=== PATIENT | male | born 1990 | race Caucasian/White ===

== ENCOUNTER 2020-05-10 21:37 | Inpatient (IN) | payer OTHER ==
[~2020-05-10] VITALS: Ht 172.7 cm; Wt 64.1 kg
[2020-05-10] MEDS ORDERED: HYDROcodone/acetaminophen 5mg/325mg tablet PO PRN (23:15)
[2020-05-10] MEDS ORDERED: NO HOME MEDS (23:25)
[2020-05-11] MEDS ORDERED: morphine 2 MG/ML inj. syringe IV PRN ×2 (00:25)
[2020-05-11] MEDS ORDERED: ondansetron/PF 4mg/2ml inj IV PRN (00:25)
[2020-05-11] MEDS ORDERED: magnesium Cl slow-release 64mg tablet PO PRN (00:25)
[2020-05-11] MEDS ORDERED: magnesium 2GM in 50ml NS 50 ML IV PRN (00:25)
[2020-05-11] MEDS ORDERED: magnesium 4gm in 100ml NS 100 ML IV PRN (00:25)
[2020-05-11] MEDS ORDERED: acetaminophen 325mg tablet PO PRN ×2 (00:25)
[2020-05-11] MEDS ORDERED: potassium Cl 20 mEq SR tablet PO PRN ×2 (00:25)
[2020-05-11] MEDS ORDERED: HYDROcodone/acetaminophen 5mg/325mg tablet PO PRN (00:25)
[2020-05-11] MEDS ORDERED: potassium CL 10mEq/100ml bag 100 ML IV PRN ×2 (00:25)
--- NOTE | 2020-05-11 02:30 | NUR ---
Patient in room PCU 3018. I have received report from ED RN and had the opportunity to ask questions and assume patient care.
--- NOTE | 2020-05-11 02:40 | NUR ---
Pt. arrived fr/ED via gurney in no acute distress. Assisted to bed, amb w/standby monitoring. Oriented to bed, room, surroundings and POC. Educated to plan, offering reassurance as pt appears anxious.
[2020-05-11 03:00] VITALS: BP 136/86
--- NOTE | 2020-05-11 03:54 | NUR ---
Talked to Dr. Lomax per patient anxiety about PE. Pt request for d-dimer. Dr. Lomax aware and noted in chart neg CT scan for PE w/ contrast from previous hospital. Dr. Lomax told me "tell him not to worry about it. The CT scan was already done." Will place CBC, CMP order for this morning labs. Will continue to monitor.
[2020-05-11] MEDS: HYDROcodone/acetaminophen 10/325mg tab PO PRN ×4 (05:30→21:56)
[2020-05-11 05:40] LABS: BASOPHILS # (AUTO) 0.1 X10'3 (0-0.2); EOSINOPHILS # (AUTO) 0.5 X10'3 (0-0.9); HEMATOCRIT 41.1 % (42.0-52.0); HEMOGLOBIN 13.8 g/dl (14.0-17.9); LYMPHOCYTES # (AUTO) 1.2 X10'3 (1.1-4.8); LYMPHOCYTES % (AUTO) 19.9 % (21-51); MEAN CORPUSCULAR HEMOGLOBIN 30.1 PG (27.0-31.0); MEAN CORPUSCULAR HGB CONC 33.7 g/dL (33.0-36.5); MEAN CORPUSCULAR VOLUME 89.3 FL (78-98); MEAN PLATELET VOLUME 7.1 FL (7.4-10.4); MONOCYTES # (AUTO) 0.6 X10'3 (0-0.9); MONOCYTES % (AUTO) 9.8 % (2-12); NEUTROPHILS # (AUTO) 3.8 X10'3 (1.8-7.7); NEUTROPHILS % (AUTO) 61.3 % (42-75); PLATELET COUNT 296 X10'3 (140-440); RED CELL DISTRIBUTION WIDTH 13.5 % (11.5-14.5); WHITE BLOOD COUNT 6.1 X10'3 (4.5-11.0)
[2020-05-11 05:56] LABS: ALANINE AMINOTRANSFERASE 24 U/L (12-78); ALBUMIN 3.8 G/DL (3.4-5.0); ALBUMIN/GLOBULIN RATIO 1.3 (1.1-1.5); ALKALINE PHOSPHATASE 46 IU/L (46-116); ANION GAP 6 (8-16); ASPARTATE AMINO TRANSFERASE 19 U/L (10-37); BILIRUBIN,TOTAL 0.5 MG/DL (0.1-1.0); BLOOD UREA NITROGEN 10 MG/DL (7-18); BUN/CREATININE RATIO 12.8 (5.4-32.0); CALCIUM 9.7 MG/DL (8.5-10.1); CHLORIDE 104 MMOL/L (99-107); CREATININE 0.78 MG/DL (0.60-1.10); GLUCOSE 90 MG/DL (70-104); POTASSIUM 4.2 MMOL/L (3.5-5.1); SODIUM 140 MMOL/L (135-145); TOTAL CARBON DIOXIDE 30.1 MMOL/L (24-32); TOTAL PROTEIN 6.8 G/DL (6.4-8.2); eGFR > 90 ML/MIN
[2020-05-11 06:00] VITALS: BP 129/89
--- NOTE | 2020-05-11 06:36 | NUR ---
Patient in room U 3018. I have received report from Estefania SAWYER and had the opportunity to ask questions and assume patient care. Addendum: 05/11/20 at 0639 by Olivia Hernandez RN Correction: Have not received report yet at this time. The night nurse was not Estefania SAWYER
--- NOTE | 2020-05-11 06:54 | NUR ---
Patient in room PCU 3018. I have received report from Yajaira SAWYER and had the opportunity to ask questions and assume patient care.
[2020-05-11] MEDS: K and/or MAG REPLACEMENT MC SCH ×2 (08:00→20:00)
[2020-05-11] MEDS ORDERED: nicotine 14mg patch - 24hr TD SCH (08:00)
[2020-05-11] MEDS: heparin, porcine 5000 units/ml vial SQ SCH ×3 (08:24→23:13)
--- NOTE | 2020-05-11 08:24 | NUR ---
Problems reprioritized. Patient report given, questions answered & plan of care reviewed with Lilibeth SAWYER.
[2020-05-11] MEDS: CefTRIAXone 2gm/D5W 50ml 50 ML IV SCH (08:25)
--- NOTE | 2020-05-11 08:32 | NUR ---
Patient refused Nicotine patch, denies being a smoker
--- NOTE | 2020-05-11 10:15 | NUR ---
Dr. Virk seen patient. Per Dr. Virk, patient's chest tube need to be back on suction because patient complaining of shortness of breath especially during deep breathing.
[2020-05-11] MEDS ORDERED: cefazolin/dext.iso 2gm/50ml 50 ML IV ONE (10:25)
[2020-05-11] MEDS ORDERED: gabapentin 400mg capsule PO ONE (10:25)
[2020-05-11] MEDS ORDERED: MALTODEXTRIN/FRUCTOSE 0.68 KCAL/ML LIQUID 296ML BOTTLE PO ONE (10:25)
[2020-05-11 11:00] VITALS: BP 146/86
[2020-05-11 11:25] LABS: PARTIAL THROMBOPLASTIN TIME 28 SECONDS (22-32)
[2020-05-11] MEDS: HYDROmorphone inj. 0.5 MG/0.5 ML DISP.SYRIN IV PRN ×2 (11:27→16:00)
[2020-05-11 14:17] LABS: CLARITY,URINE CLEAR (Clear); COLOR,URINE STRAW (Yellow); GLUCOSE, URINE NEGATIVE (Neg); KETONES,URINE NEGATIVE (Neg); LEUKOCYTE ESTERASE ,URINE NEGATIVE (Neg); NITRITES, URINE NEGATIVE (Neg); OCCULT BLOOD,URINE NEGATIVE (Neg); PROTEIN,URINE NEGATIVE (Neg)
[2020-05-11 14:25] LABS: UA COLLECTION TYPE CLN CATCH MIDSTREAM
[2020-05-11 15:00] VITALS: BP 126/78
--- NOTE | 2020-05-11 15:10 | NUR ---
Spoke to Dietitian Tony requesting for Ensure Presurgery liquid needed for surgery tomorrow. He said he will let the kitchen crew know
[2020-05-11] MEDS: LORazepam 0.5 MG tablet PO PRN (15:23)
--- NOTE | 2020-05-11 18:25 | NUR ---
Patient in room PCU 3018. I have received report from SILVERIO Steel and had the opportunity to ask questions and assume patient care.
--- NOTE | 2020-05-11 18:56 | NUR ---
Problems reprioritized. Patient report given, questions answered & plan of care reviewed with Ruth Navarro RN.
--- NOTE | 2020-05-11 19:17 | NUR ---
c/o 04/07 pain. No pain meds due at this time, will consult .
--- NOTE | 2020-05-11 19:31 | NUR ---
Received order for 0.5 mg dilaudid for mod pain, 1.0 mg for severe, D5 1/2 NS @ 75 when pt goes NPO at MO for surgery.
[2020-05-11] MEDS: HYDROmorphone 1 mg/ml syringe IV PRN ×2 (19:47→23:59)
[2020-05-11] MEDS: lactobacillus rhamnosus 10,000 MMU CELLS/CAPSULE PO SCH (19:47)
[2020-05-11] MEDS: mupirocin 2% ointment 22GM NS SCH (19:48)
[2020-05-11 22:00] VITALS: BP 129/79
[2020-05-11] MEDS: dextrose 5%-1/2 normal saline 1,000 ML IV SCH (23:57)
[2020-05-12] VITALS (25 sets, daily range): BP systolic 115–213; BP diastolic 62–104
[2020-05-12] MEDS: HYDROcodone/acetaminophen 10/325mg tab PO PRN ×3 (03:10→22:37)
[2020-05-12] MEDS: HYDROmorphone 1 mg/ml syringe IV PRN ×2 (04:14→20:48)
[2020-05-12] MEDS ORDERED: gabapentin 400mg capsule PO ONE (05:30)
[2020-05-12] MEDS ORDERED: MALTODEXTRIN/FRUCTOSE 0.68 KCAL/ML LIQUID 296ML BOTTLE PO ONE (05:30)
[2020-05-12] MEDS ORDERED: cefazolin/dext.iso 2gm/50ml 50 ML IV ONE (05:30)
[2020-05-12 06:00] LABS: BASOPHILS # (AUTO) 0.1 X10'3 (0-0.2); BASOPHILS % (AUTO) 0.9 % (0-1); EOSINOPHILS # (AUTO) 0.5 X10'3 (0-0.9); EOSINOPHILS % (AUTO) 7.5 % (0-6); HEMATOCRIT 40.5 % (42.0-52.0); HEMOGLOBIN 13.9 g/dl (14.0-17.9); LYMPHOCYTES # (AUTO) 1.4 X10'3 (1.1-4.8); LYMPHOCYTES % (AUTO) 19.7 % (21-51); MEAN CORPUSCULAR HEMOGLOBIN 30.8 PG (27.0-31.0); MEAN CORPUSCULAR HGB CONC 34.2 g/dL (33.0-36.5); MEAN CORPUSCULAR VOLUME 90.1 FL (78-98); MEAN PLATELET VOLUME 7.3 FL (7.4-10.4); MONOCYTES # (AUTO) 0.8 X10'3 (0-0.9); MONOCYTES % (AUTO) 11.2 % (2-12); NEUTROPHILS # (AUTO) 4.3 X10'3 (1.8-7.7); NEUTROPHILS % (AUTO) 60.7 % (42-75); PLATELET COUNT 295 X10'3 (140-440); WHITE BLOOD COUNT 7.1 X10'3 (4.5-11.0)
[2020-05-12 06:01] LABS: PARTIAL THROMBOPLASTIN TIME 30 SECONDS (22-32)
[2020-05-12 06:06] LABS: ALANINE AMINOTRANSFERASE 24 U/L (12-78); ALBUMIN 3.8 G/DL (3.4-5.0); ALBUMIN/GLOBULIN RATIO 1.3 (1.1-1.5); ALKALINE PHOSPHATASE 47 IU/L (46-116); ANION GAP 9 (8-16); ASPARTATE AMINO TRANSFERASE 16 U/L (10-37); BILIRUBIN,TOTAL 0.6 MG/DL (0.1-1.0); BLOOD UREA NITROGEN 14 MG/DL (7-18); BUN/CREATININE RATIO 17.3 (5.4-32.0); CALCIUM 9.3 MG/DL (8.5-10.1); CHLORIDE 103 MMOL/L (99-107); CREATININE 0.81 MG/DL (0.60-1.10); GLUCOSE 108 MG/DL (70-104); MAGNESIUM 1.7 MG/DL (1.5-2.4); POTASSIUM 3.9 MMOL/L (3.5-5.1); SODIUM 140 MMOL/L (135-145); TOTAL CARBON DIOXIDE 28.5 MMOL/L (24-32); TOTAL PROTEIN 6.8 G/DL (6.4-8.2); eGFR > 90 ML/MIN
--- NOTE | 2020-05-12 06:26 | NUR ---
Problems reprioritized. Patient report given, questions answered & plan of care reviewed with SILVERIO Celestin.
[2020-05-12] MEDS ORDERED: BUPIVAcaine/PF 2.5 mg/ml (0.25%) 30ml vial ONE ×2 (06:52→07:04)
[2020-05-12] MEDS ORDERED: sterile Talc 3 GM powder vial (for IntraPleural Use ONLY) ONE (07:00)
[2020-05-12] MEDS: K and/or MAG REPLACEMENT MC SCH ×2 (08:00→19:57)
[2020-05-12] MEDS: lactobacillus rhamnosus 10,000 MMU CELLS/CAPSULE PO SCH ×2 (08:00→20:46)
[2020-05-12] MEDS: mupirocin 2% ointment 22GM NS SCH ×2 (08:00→20:48)
[2020-05-12] MEDS: CefTRIAXone 2gm/D5W 50ml 50 ML IV SCH (08:00)
[2020-05-12] MEDS ORDERED: LIDO 2% TD ONE (08:15)
[2020-05-12] MEDS ORDERED: MINOCYCLINE TD ONE (08:15)
[2020-05-12] MEDS ORDERED: NS TD ONE (08:15)
--- NOTE | 2020-05-12 08:15 | NUR ---
Pt. taken off floor by two OR staff to go receive a pleurodesis or VATS procedure with MD Morales. Tele Needium tech aware.
[2020-05-12] MEDS: HYDROmorphone inj. 0.5 MG/0.5 ML DISP.SYRIN IV PRN (08:31)
[2020-05-12] MEDS ORDERED: rocuronium 10mg/ml inj IV ONE (08:42)
[2020-05-12] MEDS ORDERED: sevoflurane 250ml liquid IH ONE (08:42)
[2020-05-12] MEDS ORDERED: ondansetron/PF 4mg/2ml inj ONE (08:42)
[2020-05-12] MEDS ORDERED: CefTRIAXone 1000mg inj ONE (08:42)
[2020-05-12] MEDS ORDERED: dexamethasone sod phosphate 10mg/ml inj ONE (08:42)
[2020-05-12] MEDS ORDERED: ringers solution, lacted 1,000 ML IV SCH (08:48)
[2020-05-12] MEDS ORDERED: proCHLORperazine 10 MG/2 ml inj IV PRN (08:50)
[2020-05-12] MEDS ORDERED: ondansetron/PF 4mg/2ml inj IV PRN (08:50)
[2020-05-12] MEDS ORDERED: morphine 4 MG/ML inj SYRINge IV PRN (08:50)
[2020-05-12] MEDS ORDERED: morphine 2 MG/ML inj. syringe IV PRN (08:50)
[2020-05-12] MEDS ORDERED: meperidine/PF 25mg/ml syringe IV PRN ×2 (08:50)
[2020-05-12] MEDS ORDERED: midazolam 2 mg/2 ml injection ONE (08:53)
[2020-05-12] MEDS ORDERED: fentaNYL /PF 50mcg/ml 5ml ampule ONE (08:53)
[2020-05-12] MEDS ORDERED: LIDOcaine 2% (20mg/ml) 5ml vial ONE (09:00)
[2020-05-12] MEDS ORDERED: propofol inj 20 ML IV ONE ×2 (09:00→09:26)
[2020-05-12] MEDS ORDERED: MESSAGE TO NURSING PO ONE (10:00)
[2020-05-12] MEDS ORDERED: acetaminophen 1,000mg/100ml IV 100 ML IV ONE (10:24)
[2020-05-12] MEDS ORDERED: glycopyrrolate 0.2mg/ml inj ONE (10:24)
[2020-05-12] MEDS ORDERED: neostigmine methylsulfate 1 MG/ML 10ml vial ONE (10:24)
[2020-05-12] MEDS ORDERED: albuterol 2.5 MG/3 ML nebule NEB PRN (10:25)
--- NOTE | 2020-05-12 10:40 | NUR ---
Received from OR via bed, accompanied by Anesthesiologist TRIP and report given by Anesthesiolgist. Chest tube to left side attached to suction low continuous and minimal sanguinous drainage present. VS stable MD states to go off cuff pressure not art line. SCDs on, ART line present. LR IVF running at 100cc/hr. Will monitor clsosely. 10L mask on.
[2020-05-12] MEDS: meperidine/PF 25mg/ml syringe IV PRN ×2 (10:48→11:30)
[2020-05-12] MEDS ORDERED: labetalol 20mg/4ml (5mg/ml) syringe IV ONE (11:15)
--- NOTE | 2020-05-12 12:10 | NUR ---
Report called to receiving nurse. Transferred via bed on portable chest tube suction. Belongings in room upon receipt. Chest tube hooked up to wall suction. Special Issues communicated to receiving nurse. Chart at bedside. BLL call light within reach. Pt alert and oriented. Care handed over to ACCE nurse.
--- NOTE | 2020-05-12 13:35 | NUR ---
RECEIVED REPORT FROM PRAVEEN SAWYER, ASSUMED CARE.
[2020-05-12] MEDS ORDERED: ketorolac tromethamine 15mg/ml inj. IV SCH (14:00)
[2020-05-12 14:50] LABS: BASOPHILS % (AUTO) 0.1 % (0-1); EOSINOPHILS % (AUTO) 0.1 % (0-6); HEMATOCRIT 42.6 % (42.0-52.0); HEMOGLOBIN 14.5 g/dl (14.0-17.9); LYMPHOCYTES # (AUTO) 0.3 X10'3 (1.1-4.8); LYMPHOCYTES % (AUTO) 2.9 % (21-51); MEAN CORPUSCULAR HEMOGLOBIN 30.7 PG (27.0-31.0); MEAN CORPUSCULAR VOLUME 90.3 FL (78-98); MEAN PLATELET VOLUME 7.2 FL (7.4-10.4); MONOCYTES # (AUTO) 0.4 X10'3 (0-0.9); MONOCYTES % (AUTO) 3.8 % (2-12); NEUTROPHILS # (AUTO) 9.2 X10'3 (1.8-7.7); NEUTROPHILS % (AUTO) 93.1 % (42-75); PLATELET COUNT 337 X10'3 (140-440); RED BLOOD COUNT 4.72 X10'6 (4.70-6.10); RED CELL DISTRIBUTION WIDTH 13.1 % (11.5-14.5); WHITE BLOOD COUNT 9.9 X10'3 (4.5-11.0)
--- NOTE | 2020-05-12 16:58 | NUR ---
SPOKE TO PATIENT'S GIRLFRIEND WHO WAS ASKING HOW LONG HE'LL BE IN HOSPITAL, INFORMED HER TO CALL BACK IN THE AM FOR AN UPDATE ON THE WHAT YAN THINKS AN ESTIMATION OF HIS STAY POST VATS PROCEDURE.
[2020-05-12] MEDS: LORazepam 0.5 MG tablet PO PRN (17:55)
--- NOTE | 2020-05-12 18:15 | NUR ---
Patient in room MED 316. I have received report from Alyssa SAWYER and had the opportunity to ask questions and assume patient care.
[2020-05-12] MEDS: ceFAZolin inj. 1,000 MG in dextrose 5%-water 50ml 50 ML IV SCH (18:28)
--- NOTE | 2020-05-12 18:29 | NUR ---
Gave report to PAOLA SAWYER, transferred care.
[2020-05-12] MEDS: gabapentin 300mg capsule PO SCH (20:46)
[2020-05-12] MEDS: dextrose 5%-1/2 normal saline 1,000 ML IV SCH (20:48)
[2020-05-12] MEDS: heparin, porcine 5000 units/ml vial SQ SCH (20:48)
[2020-05-13] MEDS: ceFAZolin inj. 1,000 MG in dextrose 5%-water 50ml 50 ML IV SCH ×2
[2020-05-13] MEDS: HYDROmorphone 1 mg/ml syringe IV PRN ×2 (01:00→10:16)
[2020-05-13] MEDS: LORazepam 0.5 MG tablet PO PRN ×3 (01:08→22:39)
[2020-05-13] MEDS: temazepam 15mg capsule PO PRN ×2 (01:08→22:39)
[2020-05-13] MEDS ORDERED: ceFAZolin inj. 1,000 MG in dextrose 5%-water 50ml 50 ML IV ONE (01:20)
[2020-05-13 02:00] VITALS: BP 116/59
[2020-05-13] MEDS: dextrose 5%-1/2 normal saline 1,000 ML IV SCH ×2 (02:40→11:01)
[2020-05-13] MEDS: HYDROcodone/acetaminophen 10/325mg tab PO PRN ×5 (03:22→22:40)
[2020-05-13] MEDS: HYDROmorphone inj. 0.5 MG/0.5 ML DISP.SYRIN IV PRN ×2 (05:32→20:45)
[2020-05-13 05:58] LABS: BASOPHILS % (AUTO) 0.5 % (0-1); EOSINOPHILS # (AUTO) 0.1 X10'3 (0-0.9); EOSINOPHILS % (AUTO) 0.8 % (0-6); HEMOGLOBIN 12.9 g/dl (14.0-17.9); LYMPHOCYTES # (AUTO) 1.2 X10'3 (1.1-4.8); LYMPHOCYTES % (AUTO) 13.8 % (21-51); MEAN CORPUSCULAR HEMOGLOBIN 30.7 PG (27.0-31.0); MEAN CORPUSCULAR VOLUME 90.5 FL (78-98); MEAN PLATELET VOLUME 7.4 FL (7.4-10.4); MONOCYTES # (AUTO) 0.9 X10'3 (0-0.9); MONOCYTES % (AUTO) 11.1 % (2-12); NEUTROPHILS # (AUTO) 6.2 X10'3 (1.8-7.7); NEUTROPHILS % (AUTO) 73.8 % (42-75); PLATELET COUNT 315 X10'3 (140-440); RED CELL DISTRIBUTION WIDTH 13.2 % (11.5-14.5); WHITE BLOOD COUNT 8.5 X10'3 (4.5-11.0)
[2020-05-13 06:21] LABS: ALANINE AMINOTRANSFERASE 25 U/L (12-78); ALBUMIN 3.6 G/DL (3.4-5.0); ALBUMIN/GLOBULIN RATIO 1.1 (1.1-1.5); ALKALINE PHOSPHATASE 48 IU/L (46-116); ANION GAP 6 (8-16); ASPARTATE AMINO TRANSFERASE 16 U/L (10-37); BILIRUBIN,TOTAL 0.5 MG/DL (0.1-1.0); BLOOD UREA NITROGEN 10 MG/DL (7-18); BUN/CREATININE RATIO 14.5 (5.4-32.0); CALCIUM 9.1 MG/DL (8.5-10.1); CHLORIDE 102 MMOL/L (99-107); CREATININE 0.69 MG/DL (0.60-1.10); GLUCOSE 100 MG/DL (70-104); MAGNESIUM 1.8 MG/DL (1.5-2.4); POTASSIUM 3.7 MMOL/L (3.5-5.1); SODIUM 137 MMOL/L (135-145); TOTAL CARBON DIOXIDE 28.6 MMOL/L (24-32); eGFR > 90 ML/MIN
--- NOTE | 2020-05-13 06:22 | NUR ---
Problems reprioritized. Patient report given, questions answered & plan of care reviewed with Alyssa SAWYER
[2020-05-13 06:30] VITALS: BP 141/86
--- NOTE | 2020-05-13 06:30 | NUR ---
Received report from PAOLA SAWYER, [facility] care.
[2020-05-13] MEDS: K and/or MAG REPLACEMENT MC SCH ×2 (07:35→20:00)
[2020-05-13] MEDS: lactobacillus rhamnosus 10,000 MMU CELLS/CAPSULE PO SCH ×2 (07:37→20:44)
[2020-05-13] MEDS: gabapentin 300mg capsule PO SCH ×2 (07:37→20:45)
[2020-05-13] MEDS: docusate sod 100mg capsule PO PRN ×2 (07:37→20:57)
[2020-05-13] MEDS: heparin, porcine 5000 units/ml vial SQ SCH ×2 (07:38→20:46)
[2020-05-13 10:00] VITALS: BP 146/80
[2020-05-13] MEDS: mupirocin 2% ointment 22GM NS SCH (10:15)
[2020-05-13 15:00] VITALS: BP 161/96
--- NOTE | 2020-05-13 18:00 | NUR ---
Patient in room MED 316. I have received report from Alyssa SAWYER and had the opportunity to ask questions and assume patient care.
--- NOTE | 2020-05-13 18:28 | NUR ---
Gave report to PAOLA RN and orientee RN, transferred care.
[2020-05-13 20:00] VITALS: BP 145/92
[2020-05-13 22:00] VITALS: BP 149/92
[2020-05-14] MEDS: dextrose 5%-1/2 normal saline 1,000 ML IV SCH (01:38)
[2020-05-14 02:00] VITALS: BP 138/82
[2020-05-14] MEDS: HYDROcodone/acetaminophen 10/325mg tab PO PRN ×3 (03:02→13:43)
[2020-05-14] MEDS: HYDROmorphone inj. 0.5 MG/0.5 ML DISP.SYRIN IV PRN (05:18)
[2020-05-14 06:00] VITALS: BP 167/93
[2020-05-14 06:12] LABS: ALANINE AMINOTRANSFERASE 28 U/L (12-78); ALBUMIN 3.2 G/DL (3.4-5.0); ALBUMIN/GLOBULIN RATIO 1.1 (1.1-1.5); ALKALINE PHOSPHATASE 42 IU/L (46-116); ANION GAP 5 (8-16); ASPARTATE AMINO TRANSFERASE 17 U/L (10-37); BILIRUBIN,TOTAL 0.3 MG/DL (0.1-1.0); BLOOD UREA NITROGEN 9 MG/DL (7-18); BUN/CREATININE RATIO 12.2 (5.4-32.0); CALCIUM 8.9 MG/DL (8.5-10.1); CHLORIDE 104 MMOL/L (99-107); CREATININE 0.74 MG/DL (0.60-1.10); GLUCOSE 92 MG/DL (70-104); MAGNESIUM 1.8 MG/DL (1.5-2.4); POTASSIUM 4.1 MMOL/L (3.5-5.1); SODIUM 140 MMOL/L (135-145); TOTAL CARBON DIOXIDE 30.8 MMOL/L (24-32); TOTAL PROTEIN 6.2 G/DL (6.4-8.2); eGFR > 90 ML/MIN
[2020-05-14 06:13] LABS: BASOPHILS # (AUTO) 0.1 X10'3 (0-0.2); EOSINOPHILS # (AUTO) 0.5 X10'3 (0-0.9); EOSINOPHILS % (AUTO) 8.4 % (0-6); LYMPHOCYTES # (AUTO) 1.7 X10'3 (1.1-4.8); LYMPHOCYTES % (AUTO) 29.2 % (21-51); MEAN CORPUSCULAR HEMOGLOBIN 31.2 PG (27.0-31.0); MEAN CORPUSCULAR HGB CONC 34.3 g/dL (33.0-36.5); MEAN CORPUSCULAR VOLUME 90.9 FL (78-98); MEAN PLATELET VOLUME 7.3 FL (7.4-10.4); MONOCYTES # (AUTO) 0.7 X10'3 (0-0.9); MONOCYTES % (AUTO) 11.8 % (2-12); NEUTROPHILS # (AUTO) 2.8 X10'3 (1.8-7.7); NEUTROPHILS % (AUTO) 49.6 % (42-75); PLATELET COUNT 290 X10'3 (140-440); RED BLOOD COUNT 3.85 X10'6 (4.70-6.10); WHITE BLOOD COUNT 5.7 X10'3 (4.5-11.0)
--- NOTE | 2020-05-14 06:37 | NUR ---
Problems reprioritized. Patient report given, questions answered & plan of care reviewed with Mayela SAWYER.
--- NOTE | 2020-05-14 06:37 | NUR ---
Orientee documentation: I have reviewed and agree with all interventions, assessments performed and documented by Rosa Hernandez.
--- NOTE | 2020-05-14 06:49 | NUR ---
Patient in room MED 316. I have received report from SILVERIO Lee and had the opportunity to ask questions and assume patient care.
[2020-05-14] MEDS: K and/or MAG REPLACEMENT MC SCH (08:00)
[2020-05-14] MEDS ORDERED: gabapentin 300mg capsule PO ONE (09:20)
[2020-05-14] MEDS: lactobacillus rhamnosus 10,000 MMU CELLS/CAPSULE PO SCH (09:26)
[2020-05-14] MEDS: gabapentin 300mg capsule PO SCH (09:26)
[2020-05-14] MEDS: heparin, porcine 5000 units/ml vial SQ SCH (09:27)
[2020-05-14] MEDS: docusate sod 100mg capsule PO PRN (09:27)
[2020-05-14 11:00] VITALS: BP 150/91
[2020-05-14] MEDS ORDERED: HYDR-4353 PO (11:45)
--- NOTE | 2020-05-14 18:42 | NUR ---
pt. discharged from facility at 1425. pt. walked down to lobby with staff to catch an UBER. pt understood and was ok with paying for it. pt. signed and understood all paperwork. pt. understands to make f/u appointment with Dr. Vikr and was given his business card. pt. new med was escripted to [facility] on [address] pt. IV was d/c intact. pt. left with all belongings.
== END 2020-05-14 16:11 | disposition home or self-care (01) | DRG 164 ==
LOC: ER 21:38 → ED HOLD 05-11 00:25 → PCU 3S 05-11 02:25 → MED 3N 05-12 12:15
PROVIDERS: ADMIT Internal Medicine; ATTEND Internal Medicine
PROC: 3E0L4GC Introduction of Other Therapeutic Substance into Pleural Cavity, Percutaneous Endoscopic Approach (ICD-10-PCS; 2020-05-12)
PROC: 0BBP4ZZ Excision of Left Pleura, Percutaneous Endoscopic Approach (ICD-10-PCS; principal; 2020-05-12 08:42)
DX: J93.82 Other air leak (principal); J90 Pleural effusion, not elsewhere classified; F12.90 Cannabis use, unspecified, uncomplicated; F17.290 Nicotine dependence, other tobacco product, uncomplicated; F41.9 Anxiety disorder, unspecified; Z71.51 Drug abuse counseling and surveillance of drug abuser
CPT/HCPCS: 99285; Z7506; Z7508; 36415; 71045; 80053; 81003; 82948; 83036; 83735; 85025; 85610; 85730; 86885; 86900; 86901; 87635; 97110; 97116; 97161; 97530; A4215; A4618; A6223; A6258; A6449; A7000; A7048; G0378; J0131; J0690; J0696; J1100; J1170; J1644; J2001; J2175; J2250; J2270; J2405; J2704; J2710; J3010; J3490; J7060; J7120

== ENCOUNTER 2020-05-26 12:20 | Outpatient (CLI) | payer OTHER ==
[~2020-05-26 12:20] MED LIST: HYDR-4353 PO
== END 2020-05-26 23:59 | disposition home or self-care (01) ==
LOC: RAD 12:20
PROVIDERS: ATTEND Thoracic Surgery (Cardiothoracic Vascular Surgery)
DX: Z98.890 Other specified postprocedural states (principal)
CPT/HCPCS: 71046